=== PATIENT | female | born 1975 | race African-American/Black ===

== ENCOUNTER 2016-10-11 15:30 | Emergency (ER) | payer MEDICARE ==
[~2016-10-11] VITALS: Ht 157.5 cm; Wt 56.0 kg
[2016-10-11 15:31] VITALS: BP 113/65; PULSE 65; RESP 15; TEMP 98.2; O2SAT 98
--- NOTE | 2016-10-11 15:37 | PD ---
Physical Exam Date Seen by Provider: Oct 11, 2016 Time Seen by Provider: 15:35 Data Data Last Documented VS Vital Signs Date Time Temp Pulse Resp B/P Pulse Ox O2 Delivery O2 Flow Rate FiO2 10/11/16 15:31 98.2 65 15 113/65 98 MDM Supervised Visit with GARY: No Narrative Course 41 YO F with complaint of abdominal pain x 1 day, vaginal discharge x 3 days. Chronically "loose bowels." ---dysuria, F/C, N/V. LMP 1 year ago s/p ablation. Vitals reviewed. Patient seen in triage, awaiting bed placement. Bell Stiles Oct 11, 2016 15:36
[2016-10-11] MEDS ORDERED: SODIUM CHLOR 0.9% 1000 ML INJ 1,000 ML IV SCH (17:32)
--- NOTE | 2016-10-11 17:36 | PD ---
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 Patient reports history of bilateral tubal ligation as well as uterine ablation and has not had a menstrual period in the last year. Pain is described as cramping, right lower quadrant, 8 out of 10, worse with movements and palpation. She denies fevers or chills. No nausea or vomiting. No diarrhea. No urinary symptoms. For the last 3 days she has been having some vaginal discharge and vaginal itching. She believes she may have bacterial vaginosis. She sexually active with one partner and believe she has been in a monogamous relationship with him for the last 17 years. PFSH Past Medical History Cardiovascular Problems: Yes (pulmonary htn) ?: Not LMP: ablation so not in a year Social History Alcohol Use: Yes Tobacco Use: Yes Substance Use: Yes Allergies-Medications (Allergen,Severity, Reaction): Coded Allergies: No Known Allergies (Unverified , 10/11/16) Reported Meds & Prescriptions Reported Meds & Active Scripts Active Lortab (Hydrocodone-Acetaminophen) 5-325 Mg Tab 1 Tab PO Q6H PRN Review of Systems Except as stated in HPI: all other systems reviewed are Neg Physical Exam Narrative GENERAL: Well-developed, well-nourished, comfortable, no acute distress. SKIN: Focused skin assessment warm/dry. No rash. HEAD: Atraumatic. Normocephalic. EYES: Pupils equal and round. No scleral icterus. No injection or drainage. ENT: Mucous membranes pink and moist. NECK: Trachea midline. No JVD. CARDIOVASCULAR: Regular rate and rhythm. RESPIRATORY: No accessory muscle use. Clear to auscultation. Breath sounds equal bilaterally. GASTROINTESTINAL: Abdomen soft, nondistended. Moderate right lower quadrant tenderness without peritoneal signs. Respiratory abdomen is soft and nontender. Normal bowel sounds. No hernias. E COMMERCE DIRECTOR: Exam performed in the presence of female nurse. Normal external genitalia. Normal cervix. Scant/whitish/fnk-vqec-prggyclw vaginal discharge. No CMT. No uterine tenderness. No adnexal masses or tenderness. MUSCULOSKELETAL: No obvious deformities. No clubbing. No cyanosis. No edema. NEUROLOGICAL: Awake and alert. No obvious cranial nerve deficits. Motor grossly within normal limits. Normal speech. PSYCHIATRIC: Appropriate mood and affect; insight and judgment normal. Data Data Last Documented VS Vital Signs Date Time Temp Pulse Resp B/P Pulse Ox O2 Delivery O2 Flow Rate FiO2 10/11/16 21:29 68 20 106/52 100 10/11/16 15:31 98.2 Orders Complete Blood Count With Diff (10/11/16 17:32) Comprehensive Metabolic Panel (10/11/16 17:32) Lipase (10/11/16 17:32) Prothrombin Time / Inr (Pt) (10/11/16 17:32) Act Partial Throm Time (Ptt) (10/11/16 17:32) Urinalysis - C+S If Indicated (10/11/16 17:32) Ct Abd/Pel W Iv Contrast(Rout) (10/11/16 17:32) Iv Access Insert/Monitor (10/11/16 17:32) Ecg Monitoring (10/11/16 17:32) Oximetry (10/11/16 17:32) Morphine Inj (Morphine Inj) (10/11/16 17:45) Ondansetron Inj (Zofran Inj) (10/11/16 17:45) Sodium Chlor 0.9% 1000 Ml Inj (Ns 1000 M (10/11/16 17:32) Sodium Chloride 0.9% Flush (Ns Flush) (10/11/16 17:45) Ed Urine Pregnancytest Poc (10/11/16 17:32) Gc And Chlamydia Pcr (10/11/16 17:32) Wet Prep Profile (10/11/16 17:32) Iohexol 350 Inj (Omnipaque 350 Inj) (10/11/16 19:36) Ketorolac Inj (Toradol Inj) (10/11/16 20:00) Azithromycin Powd Pack (Zithromax Powd P (10/11/16 20:45) Ceftriaxone Inj (Rocephin Inj) (10/11/16 20:45) Lidocaine 1% Inj (50 Ml) (Xylocaine 1% I (10/11/16 20:45) Labs Laboratory Tests Test 10/11/16 10/11/16 17:55 18:45 White Blood Count 8.5 TH/MM3 Red Blood Count 4.53 MIL/MM3 Hemoglobin 13.9 GM/DL Hematocrit 43.6 % Mean Corpuscular Volume 96.1 FL Mean Corpuscular Hemoglobin 30.7 PG Mean Corpuscular Hemoglobin 31.9 % Concent Red Cell Distribution Width 13.0 % Platelet Count 225 TH/MM3 Mean Platelet Volume 7.9 FL Neutrophils (%) (Auto) 53.5 % Lymphocytes (%) (Auto) 36.8 % Monocytes (%) (Auto) 7.5 % Eosinophils (%) (Auto) 1.5 % Basophils (%) (Auto) 0.7 % Neutrophils # (Auto) 4.6 TH/MM3 Lymphocytes # (Auto) 3.1 TH/MM3 Monocytes # (Auto) 0.6 TH/MM3 Eosinophils # (Auto) 0.1 TH/MM3 Basophils # (Auto) 0.1 TH/MM3 CBC Comment DIFF FINAL Differential Comment Prothrombin Time 10.0 SEC Prothromb Time International 0.9 RATIO Ratio Activated Partial 24.5 SEC Thromboplast Time Urine Color YELLOW Urine Turbidity HAZY Urine pH 6.0 Urine Specific Murray 1.025 Urine Protein TRACE mg/dL Urine Glucose (UA) NEG mg/dL Urine Ketones NEG mg/dL Urine Occult Blood NEG Urine Nitrite NEG Urine Bilirubin NEG Urine Urobilinogen 2.0 MG/DL Urine Leukocyte Esterase NEG Urine RBC 2 /hpf Urine WBC 2 /hpf Urine Squamous Epithelial 6 /hpf Cells Urine Mucus MOD /lpf Microscopic Urinalysis Comment CULT NOT INDICATED Sodium Level 140 MEQ/L Potassium Level 4.4 MEQ/L Chloride Level 108 MEQ/L Carbon Dioxide Level 24.2 MEQ/L Anion Gap 8 MEQ/L Blood Urea Nitrogen 18 MG/DL Creatinine 0.72 MG/DL Estimat Glomerular Filtration 107 ML/MIN Rate Random Glucose 106 MG/DL Calcium Level 8.7 MG/DL Total Bilirubin 0.3 MG/DL Aspartate Amino Transf 34 U/L (AST/SGOT) Alanine Aminotransferase 25 U/L (ALT/SGPT) Alkaline Phosphatase 85 U/L Total Protein 7.9 GM/DL Albumin 3.7 GM/DL Lipase 243 U/L Clue Cells (Wet Prep) NONE SEEN Vaginal Trichomonas (Wet Prep) NONE SEEN Vaginal Yeast (Wet Prep) NONE SEEN Chlamydia trachomatis DNA NOT DETECTED (PCR) Neisseria gonorrhoeae DNA NOT DETECTED (PCR) MDM Medical Decision Making Medical Screen Exam Complete: Yes Emergency Medical Condition: Yes Differential Diagnosis Appendicitis, colitis, ovarian cyst, ovarian torsion, PID, UTI, cystitis, ureterolithiasis Narrative Course Vital signs reviewed and are within normal limits. CBC is unremarkable. CMP is unremarkable. Lipase is 243. UA is not suggestive of UTI. Wet prep is negative for yeast, negative for clue cells, negative for Trichomonas. CT abdomen pelvis: CONCLUSION: No acute disease. Patient was made aware of all findings. She is resting comfortably. She states that she would like to be empirically treated for gonorrhea and chlamydia. She'll be given IM Rocephin and oral azithromycin. She is resting comfortably. There are no peritoneal signs on exam. She is stable for discharge home with outpatient follow-up with her primary care physician. She states she is returning to [place] next week and will follow up with her primary care physician when she returns home. She was informed on when to return to the emergency department. She verbalizes understanding and agreement with plan. Diagnosis Primary Impression: Pelvic pain in female Referrals: Primary Care Physician 3 days Additional Instructions: Follow-up with your primary care physician this week. Return to the emergency department for worsening symptoms or any other concerns. Scripts Hydrocodone-Acetaminophen (Lortab)5-325 Mg Tab1 Tab PO Q6H PRN (PAIN) #12 TAB Ref 0 Prov:Galileo Barr MD 10/11/16 Disposition: 01 DISCHARGE HOME Condition: Stable Galileo Barr MD Oct 11, 2016 17:36
[2016-10-11] MEDS ORDERED: ONDANSETRON HCL 4 MG/2 ML VIAL IVP ONE (17:45)
[2016-10-11] MEDS ORDERED: MORPHINE SULFATE 4 MG/ML INJ IV PUSH ONE (17:45)
[2016-10-11] MEDS ORDERED: SODIUM CHLORIDE 0.9% FLUSH 10 ML FLUSH IV FLUSH PRN (17:45)
[2016-10-11 18:21] LABS: AUTOMATED NEUTROPHIL # 4.6 TH/MM3 (1.8-7.7); BASOPHIL # 0.1 TH/MM3 (0-0.2); BASOPHIL % 0.7 % (0.0-2.0); EOSINOPHIL # 0.1 TH/MM3 (0-0.4); EOSINOPHIL % 1.5 % (0.0-4.0); HEMATOCRIT 43.6 % (35.0-46.0); HEMO FLAGS DIFF FINAL; LYMPH % 36.8 % (9.0-44.0); LYMPHOCYTE # 3.1 TH/MM3 (1.0-4.8); MEAN CELL VOLUME 96.1 FL (80.0-100.0); MEAN CORPUSCULAR HEMOGLOBIN 30.7 PG (27.0-34.0); MEAN CORPUSCULAR HGB CONC 31.9 % (32.0-36.0); MONO % 7.5 % (0.0-8.0); NEUT % 53.5 % (16.0-70.0); PLATELET COUNT 225 TH/MM3 (150-450); RED BLOOD COUNT 4.53 MIL/MM3 (4.00-5.30); WHITE BLOOD COUNT 8.5 TH/MM3 (4.0-11.0)
[2016-10-11 18:25] LABS: BLOOD, URINE NEG (NEG); COMMENT (UR) CULT NOT INDICATED; CULTURE IF INDICATED CULT NOT INDICATED; GLUCOSE,URINE NEG (NEG); KETONE, URINE NEG (NEG); MUCUS URINE MOD /lpf (OCC); NITRITE,URINE NEG (NEG); SQUAMOUS EPITHELIAL CELL URINE 6 /hpf (0-5); URINE COLOR YELLOW (YELLW/STRAW)
[2016-10-11 18:31] LABS: APTT (PATIENT) 24.5 SEC (24.3-30.1); INTERNATIONAL NORMALIZED RATIO 0.9 RATIO
[2016-10-11 18:50] LABS: ANION GAP 8 MEQ/L (5-15); AST (GOT) 34 U/L (15-37); BICARBONATE 24.2 MEQ/L (21.0-32.0); BLOOD UREA NITROGEN 18 MG/DL (7-18); CHLORIDE 108 MEQ/L (98-107); GLOMERULAR FILTRATION RATE 107 ML/MIN (>89); SODIUM (NA) 140 MEQ/L (136-145)
[2016-10-11 18:54] LABS: ALKALINE PHOSPHATASE 85 U/L (45-117); ALT (GPT) 25 U/L (10-53); TOTAL BILIRUBIN ADULT 0.3 MG/DL (0.2-1.0)
[2016-10-11 19:00] LABS: POTASSIUM 4.4 MEQ/L (3.5-5.1)
[2016-10-11] MEDS ORDERED: IOHEXOL 350 MG/ML 10 ML VIAL (for RAD DIAG) IV ONE (19:36)
[2016-10-11 19:47] VITALS: BP 94/54; PULSE 72; RESP 20; O2SAT 100
[2016-10-11] MEDS ORDERED: KETOROLAC TROMETHAMINE 30 MG/ML (IVP) VIAL IV PUSH ONE (20:00)
--- NOTE | 2016-10-11 20:17 | RADRPT ---
EXAM DATE/TIME: 10/11/2016 19:27 [facility] COMPARISON: No previous studies available for comparison. INDICATIONS : Evaluate for diffuse abdomen pain. IV CONTRAST: 96 cc Omnipaque 350 (iohexol) IV ORAL CONTRAST: No oral contrast ingested. RADIATION DOSE: 9.96 CTDIvol (mGy) MEDICAL HISTORY : Hypertension. HIV. SURGICAL HISTORY : None. ENCOUNTER: Initial ACUITY: 3 days PAIN SCALE: 5/10 LOCATION: Bilateral lower quadrant TECHNIQUE: Volumetric scanning of the abdomen and pelvis was performed. Using automated exposure control and ad justment of the mA and/or kV according to patient size, radiation dose was kept as low as reasonably achievable to obtain optimal diagnostic quality images. DICOM format image data is available electro nically for review and comparison. FINDINGS: LOWER LUNGS: The visualized lower lungs are clear. LIVER: Homogeneous density without lesion. There is no dilation of the biliary tree. No calcified gallston es. SPLEEN: Normal size without lesion. PANCREAS: Within normal limits. KIDNEYS: Normal in size and shape. There is no mass, stone or hydronephrosis. ADRENAL GLANDS: Within normal limits. VASCULAR: There is no aortic aneurysm. BOWEL/MESENTERY: The stomach, small bowel, and colon demonstrate no acute abnormality. There is no free intraperitone al air or fluid. ABDOMINAL WALL: Within normal limits. RETROPERITONEUM: There is no lymphadenopathy. BLADDER: No wall thickening or mass. REPRODUCTIVE: The uterus appears heterogeneous. This is nonspecific CT examination. The endometrium appears promine nt at the cornual regions. Fallopian tube rings are seen from prior tubal ligation. INGUINAL: There is no lymphadenopathy or hernia. MUSCULOSKELETAL: Within normal limits for patient age. CONCLUSION: No acute disease. Darion Rockwell MD on October 11, 2016 at 20:11 Board Certified Radiologist. This report was verified electronically.
[2016-10-11] MEDS ORDERED: HYDR-3533 PO (20:37)
[2016-10-11] MEDS ORDERED: AZITHROMYCIN PWD FOR SUSP 1 GM PACKET PO ONE (20:45)
[2016-10-11] MEDS ORDERED: LIDOCAINE HCL 1% 50 ML VIAL IM ONE (20:45)
[2016-10-11] MEDS ORDERED: cefTRIAXone 250 MG VIAL IM ONE (20:45)
[2016-10-11 21:29] VITALS: BP 106/52
[2016-10-11 21:56] LABS: CHLAMYDIA PCR NOT DETECTED (NOT DETECT); NEISSERIA PCR NOT DETECTED (NOT DETECT)
== END 2016-10-11 22:10 | disposition home or self-care (01) ==
LOC: NEPD 15:30
DX: R10.2 Pelvic and perineal pain (principal); N89.8 Other specified noninflammatory disorders of vagina; Z21 Asymptomatic human immunodeficiency virus [HIV] infection status; Z72.0 Tobacco use; Z86.79 Personal history of other diseases of the circulatory system
CPT/HCPCS: 74177; 80053; 81001; 83690; 84703; 85025; 85610; 85730; 87210; 87491; 87591; 96361; 96372; 96374; 96375; 99285; J0696; J1885; J2270; J2405; J7030; Q9967